=== PATIENT | female | born 1980 | race Caucasian/White ===

== ENCOUNTER → 2018-04-06 | Outpatient (CLI) | payer MEDICARE ==
[~2018-04-06] MED LIST: ACET-1718 PO; ALB18R INH; ALP5; ALP5 PO; AMI25 PO; AMIT-104 PO; BACDS PO; BENZ100C4 PO; BETH25TA29 PO; BUDE0.5A6 IH; BUDE10.2 IH; BUDE10.25 IH; BUTA1CAP4 PO; BUTA1CAP6 PO; BUTA1TAB14 PO; CEFP200T PO; CETI-169 PO; CIP500 PO; CIT20 PO; CLAR250T35 PO; CLO5 PO; CLOB15CR22 TP; CODE118S5 PO; CYC10 PO; CYCL10TA29 PO; DAR100 PO; DESL1TBM PO; DESO1TAB33 PO; DIA2 PO; DIAZ-308 PO; DIPH-618 PO; DOXY-181 PO; DUL100/5PT INH; DULO60CA56 PO; EPIN0.3P3 IM; ETHI1TAB25 PO; FIO PO; FLU1 PO; HYDR-4309 PO; HYDR2TAB74 PO; HYO125 SL; IBUP800T37 PO; IOPAMIDOL 76% 75 ML INFUS BTL 75 ML ONE; KEFLEX; KET10 PO; LEV500 PO; LEVA15HF IH; LIB PO; LOR5/325 PO; LORA-629 PO; MET10 PO; MET50 PO; MET500 PO; METH4TAB57 PO; MONT10TA PO; MULT-820 PO; MULT1CAP59 PO; NAPR-1043 PO; NAPR220C12 PO; NOR5/325; NS 0.9% 25 ML BAG 50 ML ONE; OLOP30.53 NS; OMEP40CA45 PO; OMEP40CA48 PO; ONDA-2 PO; ONDA4TAB PO; ONDA8TAB94 PO; OXYC-865 PO; PER PO; PRED-1 PO; PRO25 PO; PROM-110 PO; RABE20TA33 PO; RANI-366 PO; SALT; SALT TABLETS PO; SUMA50TA34 PO; TOPI25CA13 PO; TOPI50TA99 PO; TRA50 PO; TRAM-420 PO; TURM1POW3 MC; ZOLM5 PO; [UNRECOGNIZED DRUG - CODE] PO; [UNRECOGNIZED DRUG - REMARK]
--- NOTE | 2018-04-06 16:00 | RADIOLOGY IMAGING REPORT ---
FACILITY: [facility] - [place] PATIENT NAME: Ria Pham : 1980 MR: [id number] V: [id number] EXAM DATE: ORDERING PHYSICIAN: FERNANDO BUSTAMANTE TECHNOLOGIST: Location: [facility] - [place] Patient: Ria Pham : 1980 Visit/Account:[id number] Date of Sevice: 04/06/2018 CTA CHEST WW/O CNTR (PULM ANG) HISTORY: Bruise on left leg noticed this morning, shortness of breath ADDITIONAL HISTORY: None. TECHNIQUE: CTA chest with intravenous contrast. Axial imaging acquired following administration of IV contrast timed for maximum opacification of the pulmonary arterial vasculature. Slab 3-D MIP grace nstructed images were also created for further evaluation and interpretation. Reconstruction of the s [facility] [place] data set includes multiplanar 2-D in the sagittal and coronal planes and 3-D reconstructed katie nal slab MIP series. 3-D images were created by the technologist. Dose Lowering Technique One of the following dose optimization techniques was utilized in the performance of this exam: Autom ated exposure control; adjustment of the mA and/or kV according to the patient's size; or use of an i terative reconstruction technique. Specific details can be referenced in the facility's radiology C T exam operational policy. CONTRAST: 75 mL Isovue-370 COMPARISON: None. FINDINGS: Lungs/pleura: Negative. Heart/vessels: Negative. There are no filling defects seen in the pulmonary arteries worrisome for a pulmonary embolus. Mediastinum/lymph nodes: Negative. Visualized upper abdomen: Incompletely imaged is what appears to be surgical clips in the gallbladde r fossa. A small hiatal hernia Bones/soft tissues: Mild spondylotic changes in the thoracic spine. Moderate spondylotic changes in the visualized lower cervical spine Additional findings: None IMPRESSION: No evidence of pulmonary emboli or pulmonary consolidation Results were called to FERNANDO BUSTAMANTE at 04/06/2018 3:56 PM. Report Dictated By: Maricruz Magdaleno MD at 04/06/2018 3:49 PM Report E-Signed By: Maricruz Magdaleno MD at 04/06/2018 3:56 PM WSN:[email or web address]
--- NOTE | 2018-04-06 16:28 | RADIOLOGY IMAGING REPORT ---
[place] [facility] [place] Ria Pham : 1980 MR: [id number] V: [id number] EXAM DATE: ORDERING PHYSICIAN: FERNANDO BUSTAMANTE TECHNOLOGIST: Location: [facility] - [place] Patient: Ria Pham : 1980 Visit/Account:[id number] Date of Sevice: 04/06/2018 Exam type: VENOUS DOPP LOW LEFT EXTREMITY History: Bruise on left leg Comparison: None. Findings: The left lower extremity veins were imaged including the left common femoral vein, greater saphenous vein, superficial femoral vein, popliteal vein, posterior tibial vein, anterior tibial vein revealing no evidence of trauma thrombi the veins were compressible and demonstrated augmentation IMPRESSION: 1. No sonographic evidence of DVT involving the left lower extremity veins Results were called to FERNANDO BUSTAMANTE at 04/06/2018 4:25 PM. Report Dictated By: Maricruz Magdaleno MD at 04/06/2018 4:21 PM Report E-Signed By: Maricruz Magdaleno MD at 04/06/2018 4:25 PM WSN:[email or web address]
== END ==
LOC: CT 14:29
PROVIDERS: ATTEND Nurse Practitioner Family
DX: M47.894 Other spondylosis, thoracic region (principal); K44.9 Diaphragmatic hernia without obstruction or gangrene; Z90.49 Acquired absence of other specified parts of digestive tract
CPT/HCPCS: 71275; 93971; Q9967

== ENCOUNTER 2018-04-08 17:29 | Emergency (ER) | payer MEDICARE ==
[~2018-04-08 17:29] MED LIST changes: -IOPAMIDOL 76% 75 ML INFUS BTL 75 ML ONE; -NS 0.9% 25 ML BAG 50 ML ONE
[2018-04-08 17:35] VITALS: BP 132/106
[2018-04-08] MEDS ORDERED: ASPI-1471 PO (17:39)
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
[2018-04-08] MEDS ORDERED: NS(*) 0.9% 1000 ML BAG 1,000 ML IV ONE (18:10)
--- NOTE | 2018-04-08 18:47 | EKG ---
FACILITY: [facility] PATIENT NAME: SHANNON MAHARAJ : [id number] MR: [id number] V: [id number] EXAM DATE: ORDERING PHYSICIAN: GLENN PEÑA TECHNOLOGIST: BEN DeL eon Reason : Blood Pressure : / mmHG Vent. Rate : 096 BPM Atrial Rate : 096 BPM P-R Int : 152 ms QRS Dur : 092 ms QT Int : 330 ms P-R-T Axes : 037 -16 031 degrees QTc Int : 416 ms Sinus rhythm When compared with ECG of 18-JUN-2016 09:57, No significant change was found Confirmed by MILY TATUM ([id number]) on 04/08/2018 7:55:28 PM Referred By: Confirmed By:MILY TATUM
[2018-04-08 18:52] LABS: PLATELET COUNT, AUTOMATED 190 K/uL (150-450)
[2018-04-08] MEDS ORDERED: ALBUTEROL/IPRATROPIUM 3 ML NEB NEB ONE (19:05)
[2018-04-08 19:21] LABS: INR 1.05
--- NOTE | 2018-04-08 20:16 | RADIOLOGY IMAGING REPORT ---
FACILITY: [facility] PATIENT NAME: Ria Pham : 1980 MR: [id number] V: [id number] EXAM DATE: ORDERING PHYSICIAN: GLENN PEÑA TECHNOLOGIST: Location: [facility] Patient: Ria Pham : 1980 Visit/Account:[id number] Date of Sevice: 04/08/2018 CHEST: Indication: Dyspnea. Technique: Frontal and lateral views were obtained. Comparison: 06/18/2016 Skeletal and soft tissue structures: Intact and unremarkable. Heart and mediastinum: Within normal limits. Lung hart: Well-expanded and clear. Pleural spaces: Unremarkable. Impression: No acute process or significant change. Report Dictated By: Junaid Sampson MD at 04/08/2018 8:10 PM Report E-Signed By: Junaid Sampson MD at 04/08/2018 8:11 PM WSN:[id number]
--- NOTE | 2018-04-08 20:17 | RADIOLOGY IMAGING REPORT ---
FACILITY: [facility] [place] PATIENT NAME: Ria Pham : 1980 MR: [id number] V: [id number] EXAM DATE: ORDERING PHYSICIAN: GLENN PEÑA TECHNOLOGIST: Location: [facility] Patient: Ria Pham : 1980 Visit/Account:[id number] Date of Sevice: 04/08/2018 CERVICAL SPINE: Indication: Neck pain. Technique: Multiple frontal and lateral images were obtained. Comparison: None. Findings: There is no evidence of fracture, subluxation, or compression deformity. There is moderate space narrowing and marginal formation at C6-C7. The other disc spaces appear normal. There is unifor m mineralization of the skeletal structures. No paraspinal soft tissue abnormalities are identified. IMPRESSION: Moderate degenerative disc disease and osteoarthritis at C6-C7. No acute deformity. Report Dictated By: Junaid Sampson MD at 04/08/2018 8:11 PM Report E-Signed By: Junaid Sampson MD at 04/08/2018 8:13 PM WSN:[id number]
--- NOTE | 2018-04-08 20:39 | RADIOLOGY IMAGING REPORT ---
[place] [facility] [place]: Ria Pham : 1980 MR: [id number] V: [id number] EXAM DATE: ORDERING PHYSICIAN: GLENN PEÑA TECHNOLOGIST: Location: [facility] Patient: Ria Pham : 1980 Visit/Account:[id number] Date of Sevice: 04/08/2018 Venous Doppler ultrasound left lower extremity Indication: Left leg swelling.. Comparison: None Available Findings: Duplex Doppler and color flow imaging was performed. The common femoral, femoral, and popl iteal veins are all patent and compressible with normal Doppler wave forms. There are normal respons es to augmentation. The posterior tibial and peroneal veins are patent in the calf. The proximal greater saphenous vein is also normal. Subcutaneous tissues are unremarkable. IMPRESSION: 1. No evidence of deep venous thrombosis of the left lower extremity. Report Dictated By: Piero Keith at 04/08/2018 8:33 PM Report E-Signed By: Piero Keith at 04/08/2018 8:35 PM WSN:[id number]
[2018-04-08] MEDS ORDERED: AZIT-18 PO (20:47)
[2018-04-08] MEDS ORDERED: PRED20TA6 PO (20:47)
== END 2018-04-08 20:56 | disposition home or self-care (01) ==
LOC: ER 18:03
DX: M50.323 Other cervical disc degeneration at C6-C7 level (principal); M47.812 Spondylosis without myelopathy or radiculopathy, cervical region; J45.41 Moderate persistent asthma with (acute) exacerbation
CPT/HCPCS: 71046; 72040; 85025; 85610; 85730; 93005; 93971; 94640; 96360; 99285; J7030; J7620; 82040; 82247; 82310; 82374; 82435; 82565; 82947; 84075; 84132; 84155; 84295; 84450; 84460; 84520

== ENCOUNTER → 2018-04-12 | Outpatient (CLI) | payer MEDICARE ==
[~2018-04-12] MED LIST changes: +ASPI-1471 PO; +AZIT-18 PO; +PRED20TA6 PO
== END ==
LOC: LAB 10:08
PROVIDERS: ATTEND Nurse Practitioner Family
DX: R58 Hemorrhage, not elsewhere classified (principal); R60.0 Localized edema; L53.9 Erythematous condition, unspecified; Z87.42 Personal history of other diseases of the female genital tract; Z83.2 Family history of diseases of the blood and blood-forming organs and certain disorders involving the immune mechanism
CPT/HCPCS: 36415; 85240

== ENCOUNTER 2018-04-14 02:31 | Day surgery (SDC) | payer MEDICARE, OTHER ==
[~2018-04-14] VITALS: Ht 170.2 cm; Wt 147.0 kg
[2018-04-14] MEDS ORDERED: LIDOCAINE/SOD BICARB 8.4% SYR ID ONE (07:00)
[2018-04-14] MEDS ORDERED: NORMOSOL R SOLN(*) 1000 ML BAG 1,000 ML IV PRN (07:00)
[2018-04-14] MEDS ORDERED: PROPOFOL EMUL(*) 10MG/ML 20 ML 20 ML ONE (07:06)
[2018-04-14 07:33] VITALS: BP 128/98
[2018-04-14 08:59] VITALS: BP 141/81
--- NOTE | 2018-04-14 09:08 | Short(Outpt) Discharge Summary ---
Discharge Summary Reason for Hosp/Final Diag: (1) Nausea and vomiting in adult Status: Chronic Hospital Course & Plan: EGD with biopsies completed without problems. (2) Epigastric abdominal pain Status: Chronic Departure Discharge to: Home, Self Care Discharge Instructions Home Meds Active Scripts Prednisone (PREDNISONE) 20 Mg Tablet, 20 MG PO BID for 5 Days, #10 TAB Prov:GLENN PEÑA [facility] 04/08/18 Azithromycin 250 Mg Tab (AZITHROMYCIN 250 MG TAB) 250 Mg Tablet, 1 TAB PO QDAY for 5 Days, #6 TAB Take 2 tabs today and then 1 tab a day until gone. Prov:GLENN PEÑA [facility] 04/08/18 Reported Medications Aspirin (ASPIR 81) 81 Mg Tablet.dr, 81 MG PO QDAY, TAB 04/08/18 Montelukast Sodium (SINGULAIR) 10 Mg Tablet, 1 TAB PO QDAY, TAB 03/09/18 Epinephrine (EPINEPHRINE) 0.3 Mg/0.3 Ml Pen.injctr, 0.3 MG IM PRN 03/09/18 Levalbuterol Tartrate (XOPENEX HFA) 15 Gm Hfa.aer.ad, 2 PUFF IH Q4-6H Y for SHORTNESS OF BREATH, #2 03/09/18 Mometasone/Formoterol (DULERA 100 MCG/5 MCG INHALER) 13 Gm Inh, 2 PUFF INH QDAY , #2 PUFF 03/09/18 Bethanechol Chloride (BETHANECHOL CHLORIDE) 25 Mg Tablet, 25 MG PO ACHS 03/09/18 Ranitidine Hcl (ZANTAC) 150 Mg Tablet, 300 MG PO QHS, TAB 03/09/18 Budesonide (BUDESONIDE) 0.5 Mg/2 Ml Ampul.neb, 0.5 MG IH BID, ML 03/09/18 Olopatadine Hcl (PATANASE) 30.5 Gm [place].pump, 2 SPRAYS NS BID, #2 SPRAYS 03/09/18 Cetirizine Hcl (CETIRIZINE HCL) 10 Mg Tablet, 10 MG PO QHS, TAB 03/09/18 Loratadine (LORATADINE) 10 Mg Tablet, 10 MG PO QDAY 03/09/18 Ondansetron Hcl (ONDANSETRON HCL) 4 Mg Tablet, 4 MG PO 2XW, TAB 03/09/18 Diphenhydramine Hcl (DIPHENHYDRAMINE HCL) 25 Mg Tablet, 25 MG PO PRN, TAB 03/09/18 Naproxen Sodium (ALEVE) 220 Mg Capsule, 220 MG PO 3XW, CAPSULE 03/09/18 Butalb/Acetaminophen/Caff 50-325-40 Mg (FIORICET 50-325-40) 1 Each Tablet, 1-2 TAB PO PRN, #30 TAB 03/09/18 Cyclobenzaprine Hcl (CYCLOBENZAPRINE HCL) 10 Mg Tablet, 10 MG PO PRN, #9 TAB 03/09/18 Clobetasol Propionate/Emoll (CLOBETASOL EMOLLIENT 0.05% CRM) 15 Gm Cream..g., 0 TP PRN 03/09/18 Turmeric (CURCUMIN) 1 Gm Powder, 1 GM MC PRN 03/09/18 Multivitamin (MULTIVITAMINS) 1 Each Capsule, 1 EACH PO, CAPSULE 03/09/18 Omeprazole (OMEPRAZOLE) 40 Mg Capsule.dr, 40 MG PO BID, CAP 03/09/18 Discontinued Reported Medications Tramadol Hcl (TRAMADOL HCL) 50 Mg Tablet, 50-100 MG PO 1-3/month, TAB 03/09/18 Budesonide/Formoterol Fumarate (SYMBICORT 80-4.5 MCG INHALER) 10.2 Gm Hfa.aer.ad , 10.2 GM IH BID, #2 PUFF 03/09/18 Diet: Regular Activity: As Tolerated Special Instructions: Your EGD was completed without problems and I performed the biopsies that we discussed but I didn't find anything else abnormal to biopsy. There were no ulcers or other abnormalities. My office will call you in the next week to let you know what the biopsy results are and we'll fax all results to your GI specialist in [place]. PEMA JACKSON MD Apr 14, 2018 09:08
[2018-04-14 09:13] VITALS: BP 122/88
[2018-04-14 09:26] VITALS: BP 130/78
[2018-04-14 09:37] VITALS: BP 126/91
[2018-04-14 09:39] VITALS: BP 129/83
== END 2018-04-14 09:50 | disposition home or self-care (01) ==
LOC: OR 02:31
PROVIDERS: ATTEND Surgery
DX: R10.9 Unspecified abdominal pain (principal); R11.2 Nausea with vomiting, unspecified
CPT/HCPCS: 43239; 81025; 87077; 88305; J2704

== ENCOUNTER 2018-04-17 21:29 | Emergency (ER) | payer MEDICARE ==
--- NOTE | 2018-04-17 21:32 | ER Report ---
History and Physical Time Seen By MD: 21:31 HPI/ROS CHIEF COMPLAINT: Near syncope, dizziness HISTORY OF PRESENT ILLNESS: Patient is a 37-year-old female here with complaints of near syncopal episodes, dizziness, weakness. Patient reports that she has had multiple similar episodes however this evening her fall was witnessed by her friend who brought her to the emergency department. Patient also reports that she is being worked up for bleeding and clotting disorder, abnormal bruising, possible factor IV Leiden syndrome. Patient complains of nausea, dehydration. Denies fevers, chills, chest pain, shortness breath, rash. REVIEW OF SYSTEMS: Constitutional: No fever, no chills. Eyes: No discharge. ENT: No sore throat. Cardiovascular: No chest pain, no palpitations. Respiratory: No cough, no shortness of breath. Gastrointestinal: No abdominal pain, + nausea and intermittent vomiting. Genitourinary: No hematuria. Musculoskeletal: No back pain. Skin: No rashes. Neurological: No headache. Allergies: Coded Allergies: morphine (Verified Allergy, Intermediate, HIVES, 04/17/18) Penicillins (Verified Allergy, Mild, RASH, 04/17/18) latex (Verified Allergy, Mild, hives/rash, 04/17/18) NSAIDS (Non-Steroidal Anti-Inflamma (Verified Allergy, Unknown, ITCHING, ) banana (Unverified Allergy, Unknown, 04/17/18) milk (Unverified Allergy, Unknown, 04/17/18) pineapple (Unverified Allergy, Unknown, 04/17/18) tomato (Unverified Allergy, Unknown, 04/17/18) aspirin (Verified Adverse Reaction, Unknown, 04/17/18) Uncoded Allergies: Nuts (Allergy, Unknown, 02/23/18) Dairy (Adverse Reaction, Unknown, 02/23/18) Home Meds Reported Medications Aspirin (ASPIR 81) 81 Mg Tablet.dr, 81 MG PO QDAY, TAB 04/08/18 Montelukast Sodium (SINGULAIR) 10 Mg Tablet, 1 TAB PO QDAY, TAB 03/09/18 Epinephrine (EPINEPHRINE) 0.3 Mg/0.3 Ml Pen.injctr, 0.3 MG IM PRN 03/09/18 Levalbuterol Tartrate (XOPENEX HFA) 15 Gm Hfa.aer.ad, 2 PUFF IH Q4-6H Y for SHORTNESS OF BREATH, #2 03/09/18 Mometasone/Formoterol (DULERA 100 MCG/5 MCG INHALER) 13 Gm Inh, 2 PUFF INH QDAY , #2 PUFF 03/09/18 Bethanechol Chloride (BETHANECHOL CHLORIDE) 25 Mg Tablet, 25 MG PO ACHS 03/09/18 Ranitidine Hcl (ZANTAC) 150 Mg Tablet, 300 MG PO QHS, TAB 03/09/18 Budesonide (BUDESONIDE) 0.5 Mg/2 Ml Ampul.neb, 0.5 MG IH BID, ML 03/09/18 Olopatadine Hcl (PATANASE) 30.5 Gm [place].pump, 2 SPRAYS NS BID, #2 SPRAYS 03/09/18 Cetirizine Hcl (CETIRIZINE HCL) 10 Mg Tablet, 10 MG PO QHS, TAB 03/09/18 Loratadine (LORATADINE) 10 Mg Tablet, 10 MG PO QDAY 03/09/18 Ondansetron Hcl (ONDANSETRON HCL) 4 Mg Tablet, 4 MG PO 2XW, TAB 03/09/18 Diphenhydramine Hcl (DIPHENHYDRAMINE HCL) 25 Mg Tablet, 25 MG PO PRN, TAB 03/09/18 Naproxen Sodium (ALEVE) 220 Mg Capsule, 220 MG PO 3XW, CAPSULE 03/09/18 Butalb/Acetaminophen/Caff 50-325-40 Mg (FIORICET 50-325-40) 1 Each Tablet, 1-2 TAB PO PRN, #30 TAB 03/09/18 Cyclobenzaprine Hcl (CYCLOBENZAPRINE HCL) 10 Mg Tablet, 10 MG PO PRN, #9 TAB 03/09/18 Clobetasol Propionate/Emoll (CLOBETASOL EMOLLIENT 0.05% CRM) 15 Gm Cream..g., 0 TP PRN 03/09/18 Turmeric (CURCUMIN) 1 Gm Powder, 1 GM MC PRN 03/09/18 Multivitamin (MULTIVITAMINS) 1 Each Capsule, 1 EACH PO, CAPSULE 03/09/18 Omeprazole (OMEPRAZOLE) 40 Mg Capsule.dr, 40 MG PO BID, CAP 03/09/18 Discontinued Scripts Prednisone (PREDNISONE) 20 Mg Tablet, 20 MG PO BID for 5 Days, #10 TAB Prov:GLENN PEÑA [employer] 04/08/18 Azithromycin 250 Mg Tab (AZITHROMYCIN 250 MG TAB) 250 Mg Tablet, 1 TAB PO QDAY for 5 Days, #6 TAB Take 2 tabs today and then 1 tab a day until gone. Prov:GLENN PEÑA [employer] 04/08/18 Hx Smoking: No Smoking Status: Never Smoker Exposure to Second Hand Smoke?: No Hx Substance Use Disorder: No Hx Alcohol Use: No Constitutional Physical Exam General Appearance: The patient is alert, has no immediate need for airway protection and no signs of toxicity. NAD Eyes: Pupils equal and round no pallor or injection. ENT, Mouth: Mucous membranes are moist. Respiratory: There are no retractions, lungs are clear to auscultation. Cardiovascular: Regular rate and rhythm. Gastrointestinal: Abdomen is soft and non tender, no masses, bowel sounds normal. Neurological: No focal deficits Skin: Warm and dry, no rashes. Musculoskeletal: Neck is supple non tender. DIFFERENTIAL DIAGNOSIS: After history and physical exam differential diagnosis was considered for dehydration, electrolyte imbalance, arrhythmia, head injury. Medical Decision Making Data Points Laboratory Hematology Test 04/17/18 21:37 04/17/18 21:58 Urine Color Yellow Urine Clarity Clear Urine pH 6.0 pH (4.8-9.5) Urine Specific [place] 1.016 Urine Protein Negative mg/dL (NEGATIVE) Urine Glucose (UA) Negative mg/dL (NEGATIVE) Urine Ketones Negative mg/dL (NEGATIVE) Urine Blood Small (NEGATIVE) Urine Nitrite Negative (NEGATIVE) Urine Bilirubin Negative (NEGATIVE) Urine Urobilinogen Negative mg/dL (0.2-1.9) Urine Leukocyte Esterase Negative (NEGATIVE) Urine RBC 1 /HPF (0-2/HPF) Urine WBC None /HPF (0-5/HPF) Urine Squamous Epithelial Cells Many /LPF (</=FEW) Urine Bacteria Negative /HPF (NONE-FEW) Urine Mucus None /HPF (NONE-FEW) Red Blood Count 4.88 M/uL (4.17-5.56) Mean Corpuscular Volume 87.1 fL (80.0-96.0) Mean Corpuscular Hemoglobin 29.3 pg (26.0-33.0) Mean Corpuscular Hemoglobin Concent 33.6 g/dL (32.0-36.0) Red Cell Distribution Width 14.2 % (11.5-14.5) Mean Platelet Volume 9.0 fL (7.2-11.1) Neutrophils (%) (Auto) 73.5 % (39.4-72.5) Lymphocytes (%) (Auto) 19.1 % (17.6-49.6) Monocytes (%) (Auto) 5.5 % (4.1-12.4) Eosinophils (%) (Auto) 0.9 % (0.4-6.7) Basophils (%) (Auto) 1.0 % (0.3-1.4) Nucleated RBC Relative Count (auto) 0.1 /100WBC Neutrophils # (Auto) 8.5 K/uL (2.0-7.4) Lymphocytes # (Auto) 2.2 K/uL (1.3-3.6) Monocytes # (Auto) 0.6 K/uL (0.3-1.0) Eosinophils # (Auto) 0.1 K/uL (0.0-0.5) Basophils # (Auto) 0.1 K/uL (0.0-0.1) Nucleated RBC Absolute Count (auto) 0.01 K/uL Prothrombin Time 13.9 seconds (12.0-14.4) Prothromb Time International Ratio 1.07 Activated Partial Thromboplast Time 29 seconds (23-35) Sodium Level 139 mmol/L (137-145) Potassium Level 3.5 mmol/L (3.5-5.0) Chloride Level 103 mmol/L (98-107) Carbon Dioxide Level 27 mmol/L (22-31) Blood Urea Nitrogen 11 mg/dl (7-18) Creatinine 0.70 mg/dl (0.52-1.04) Glomerular Filtration Rate Calc > 60.0 Random Glucose 119 mg/dl (75-110) Calcium Level 9.1 mg/dl (8.4-10.2) Total Bilirubin 0.4 mg/dl (0.2-1.3) Aspartate Amino Transf (AST/SGOT) 19 U/L (0-35) Alanine Aminotransferase (ALT/SGPT) 34 U/L (0-56) Alkaline Phosphatase 62 U/L (0-126) Total Protein 6.8 g/dl (6.3-8.2) Albumin 3.6 g/dl (3.5-5.0) Lipase 101 U/L (23-300) Human Chorionic Gonadotropin, Qual Negative (NEGATIVE) Chemistry Test 04/17/18 21:37 04/17/18 21:58 Urine Color Yellow Urine Clarity Clear Urine pH 6.0 pH (4.8-9.5) Urine Specific [place] 1.016 Urine Protein Negative mg/dL (NEGATIVE) Urine Glucose (UA) Negative mg/dL (NEGATIVE) Urine Ketones Negative mg/dL (NEGATIVE) Urine Blood Small (NEGATIVE) Urine Nitrite Negative (NEGATIVE) Urine Bilirubin Negative (NEGATIVE) Urine Urobilinogen Negative mg/dL (0.2-1.9) Urine Leukocyte Esterase Negative (NEGATIVE) Urine RBC 1 /HPF (0-2/HPF) Urine WBC None /HPF (0-5/HPF) Urine Squamous Epithelial Cells Many /LPF (</=FEW) Urine Bacteria Negative /HPF (NONE-FEW) Urine Mucus None /HPF (NONE-FEW) White Blood Count 11.6 k/uL (4.5-11.0) Red Blood Count 4.88 M/uL (4.17-5.56) Hemoglobin 14.3 g/dL (12.0-16.0) Hematocrit 42.5 % (34.0-47.0) Mean Corpuscular Volume 87.1 fL (80.0-96.0) Mean Corpuscular Hemoglobin 29.3 pg (26.0-33.0) Mean Corpuscular Hemoglobin Concent 33.6 g/dL (32.0-36.0) Red Cell Distribution Width 14.2 % (11.5-14.5) Platelet Count 188 K/uL (150-450) Mean Platelet Volume 9.0 fL (7.2-11.1) Neutrophils (%) (Auto) 73.5 % (39.4-72.5) Lymphocytes (%) (Auto) 19.1 % (17.6-49.6) Monocytes (%) (Auto) 5.5 % (4.1-12.4) Eosinophils (%) (Auto) 0.9 % (0.4-6.7) Basophils (%) (Auto) 1.0 % (0.3-1.4) Nucleated RBC Relative Count (auto) 0.1 /100WBC Neutrophils # (Auto) 8.5 K/uL (2.0-7.4) Lymphocytes # (Auto) 2.2 K/uL (1.3-3.6) Monocytes # (Auto) 0.6 K/uL (0.3-1.0) Eosinophils # (Auto) 0.1 K/uL (0.0-0.5) Basophils # (Auto) 0.1 K/uL (0.0-0.1) Nucleated RBC Absolute Count (auto) 0.01 K/uL Prothrombin Time 13.9 seconds (12.0-14.4) Prothromb Time International Ratio 1.07 Activated Partial Thromboplast Time 29 seconds (23-35) Glomerular Filtration Rate Calc > 60.0 Calcium Level 9.1 mg/dl (8.4-10.2) Total Bilirubin 0.4 mg/dl (0.2-1.3) Aspartate Amino Transf (AST/SGOT) 19 U/L (0-35) Alanine Aminotransferase (ALT/SGPT) 34 U/L (0-56) Alkaline Phosphatase 62 U/L (0-126) Total Protein 6.8 g/dl (6.3-8.2) Albumin 3.6 g/dl (3.5-5.0) Lipase 101 U/L (23-300) Human Chorionic Gonadotropin, Qual Negative (NEGATIVE) Coagulation Test 04/17/18 21:58 Prothrombin Time 13.9 seconds Prothromb Time International Ratio 1.07 Activated Partial Thromboplast Time 29 seconds Urinalysis Test 04/17/18 21:37 Urine Color Yellow Urine Clarity Clear Urine pH 6.0 pH (4.8-9.5) Urine Specific [place] 1.016 Urine Protein Negative mg/dL (NEGATIVE) Urine Glucose (UA) Negative mg/dL (NEGATIVE) Urine Ketones Negative mg/dL (NEGATIVE) Urine Blood Small (NEGATIVE) Urine Nitrite Negative (NEGATIVE) Urine Bilirubin Negative (NEGATIVE) Urine Urobilinogen Negative mg/dL (0.2-1.9) Urine Leukocyte Esterase Negative (NEGATIVE) Urine RBC 1 /HPF (0-2/HPF) Urine WBC None /HPF (0-5/HPF) Urine Squamous Epithelial Cells Many /LPF (</=FEW) Urine Bacteria Negative /HPF (NONE-FEW) Urine Mucus None /HPF (NONE-FEW) EKG/Imaging EKG Interpretation Test Reason : DIZZY Blood Pressure : / mmHG Vent. Rate : 082 BPM Atrial Rate : 082 BPM P-R Int : 160 ms QRS Dur : 092 ms QT Int : 350 ms P-R-T Axes : 023 -20 012 degrees QTc Int : 408 ms Normal sinus rhythm No ST-T abnormalities Relatively unchange from previous Confirmed by HOMER LOPEZ ([id number]) on 04/18/2018 6:25:03 AM Monitor Interpretation: Normal Sinus Rhythm Imaging EXAMINATION: CT head without IV contrast HISTORY: Fall. Hit head. Dizzy. Nausea and vomiting. TECHNIQUE: Axial CT images of the head were obtained from the vertex to the skull base without IV contrast, with coronal and sagittal 2D reconstructed images. One of the following dose optimization techniques was utilized in the performance of this exam: Automated exposure control; adjustment of the mA and/ or kV according to the patient's size; or use of an iterative reconstruction technique. Specific details can be referenced in the facility's radiology CT exam operational policy. COMPARISON: 04/05/2015. FINDINGS: The intracranial contents are unremarkable. No CT evidence of intracranial hemorrhage, mass lesion, or acute infarct. No midline shift or extra-axial fluid collections. Maza-white differentiation is maintained. The calvarium is intact. The visualized paranasal sinuses and mastoid air cells are unopacified. IMPRESSION: Unremarkable noncontrast head CT. ED Course/Re-evaluation ED Course Patient is a 37-year-old female here with complaints of near syncopal episodes. She was noted to fall this evening witnessed by her friend who brought her in for evaluation. Labs were relatively unremarkable, was negative, urinalysis showed no signs of infection, no signs of acute anemia were present. EKG showed no arrhythmias or ischemic changes. CT imaging of the head was performed due to patient's symptoms of headache and dizziness which showed no intracranial pathology. Patient was given fluid boluses 2, Zofran and had significant relief of symptoms. Patient was advised to follow-up with family doctor in the next several days. Patient was stable, ambulating without issue at time of discharge. Decision to Disposition Date: Apr 17, 2018 Decision to Disposition Time: 23:15 Depart Departure Latest Vital Signs Impression: Primary Impression: Near syncope Additional Impression: Dizziness Condition: Improved Disposition: HOME OR SELF-CARE Referrals: JEFE,DAVIN [employer]GER (PCP) Patient Instructions: Dizziness (ED), Near Syncope (ED) Problem Qualifiers ADINA EDE DO Apr 17, 2018 21:32
[2018-04-17] MEDS ORDERED: NS(*) 0.9% 1000 ML BAG 1,000 ML IV ONE ×2 (21:43→22:35)
[2018-04-17] MEDS ORDERED: ONDANSETRON 4 MG/2 ML VIAL IVP ONE (21:45)
[2018-04-17 22:04] LABS: PLATELET COUNT, AUTOMATED 188 K/uL (150-450)
[2018-04-17 22:14] LABS: INR 1.07
--- NOTE | 2018-04-17 22:37 | RADIOLOGY IMAGING REPORT ---
FACILITY[place] [facility] [place]IENT NAME: Ria Pham : 1980 MR: [id number] V: [id number] EXAM DATE: ORDERING PHYSICIAN: ADINA DEE TECHNOLOGIST: Location: [facility] - [place] Patient: Ria Pham : 1980 Visit/Account:[id number] Date of Sevice: 04/17/2018 EXAMINATION: CT head without IV contrast HISTORY: Fall. Hit head. Dizzy. Nausea and vomiting. TECHNIQUE: Axial CT images of the head were obtained from the vertex to the skull base without IV c ontrast, with coronal and sagittal 2D reconstructed images. One of the following dose optimization techniques was utilized in the performance of this exam: Autom ated exposure control; adjustment of the mA and/or kV according to the patient's size; or use of an i terative reconstruction technique. Specific details can be referenced in the facility's radiology C T exam operational policy. COMPARISON: 04/05/2015. FINDINGS: The intracranial contents are unremarkable. No CT evidence of intracranial hemorrhage, mass lesion, or acute infarct. No midline shift or extra-axial fluid collections. Maza-white differentiation is maintained. The calvarium is intact. The visualized paranasal sinuses and mastoid air cells are unopacified. IMPRESSION: Unremarkable noncontrast head CT. Report Dictated By: Silvino Muller MD at 04/17/2018 10:31 PM Report E-Signed By: Silvino Muller MD at 04/17/2018 10:34 PM WSN:[id number]
--- NOTE | 2018-04-17 23:02 | EKG ---
FACILITY: [facility] - [place] PATIENT NAME: SHANNON MAHARAJ : [id number] MR: [id number] V: [id number] EXAM DATE: ORDERING PHYSICIAN: ADINA DEE TECHNOLOGIST: RALPH Test Reason : DIZZY Blood Pressure : / mmHG Vent. Rate : 082 BPM Atrial Rate : 082 BPM P-R Int : 160 ms QRS Dur : 092 ms QT Int : 350 ms P-R-T Axes : 023 -20 012 degrees QTc Int : 408 ms Normal sinus rhythm No ST-T abnormalities Relatively unchange from previous Confirmed by HOMER LOPEZ ([id number]) on 04/18/2018 6:25:03 AM Referred By: Confirmed By:HOMER LOPEZ
[2018-04-17 23:23] VITALS: BP 113/84
== END 2018-04-17 23:25 | disposition home or self-care (01) ==
LOC: ER 21:50
DX: R55 Syncope and collapse (principal); R42 Dizziness and giddiness
CPT/HCPCS: 70450; 81001; 83690; 84703; 85025; 85610; 85730; 93005; 96361; 96374; 99284; J2405; J7030; 82040; 82247; 82310; 82374; 82435; 82565; 82947; 84075; 84132; 84155; 84295; 84450; 84460; 84520

== ENCOUNTER 2018-05-16 19:30 | Emergency (ER) | payer MEDICARE ==
[2018-05-16] MEDS ORDERED: CEF300 PO (19:45)
[2018-05-16] MEDS ORDERED: BENZ100C4 PO (19:45)
--- NOTE | 2018-05-16 19:53 | ER Report ---
History and Physical Time Seen By MD: 19:49 Hx. of Stated Complaint: PT SENT HER FROM URGENT CARE FOR A RESP INFECTION. THEY WERE UNABLE TO GET AN IV STARTED. HPI/ROS CHIEF COMPLAINT: Nausea and vomiting HISTORY OF PRESENT ILLNESS: This is a 37-year-old female presents to the emergency department from urgent care for an upper respiratory infection, nausea and vomiting. Patient states she was seen at both urgent cares today she was diagnosed with an upper respiratory infection started on Omnicef. Patient also states that they did "try to get an IV to rehydrate" unfortunately they were unsuccessful. Subsequently the patient was sent to the emergency department for normal saline infusion. 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 Patient states that she' s been having these coughing episodes which has induced the vomiting and is "unable to keep anything down", however she has been able to keep her antibiotic down as well as the benzonatate and prednisone. Patient states she's had intermittent fevers, no chills. No chest pain or shortness of breath. REVIEW OF SYSTEMS: Constitutional: As above. Eyes: No discharge. ENT: No sore throat. Cardiovascular: No chest pain, no palpitations. Respiratory: As above. Gastrointestinal: As above. Genitourinary: No hematuria. Musculoskeletal: No back pain. Skin: No rashes. Neurological: No headache. Allergies: Coded Allergies: morphine (Verified Allergy, Intermediate, HIVES, 05/16/18) Penicillins (Verified Allergy, Mild, RASH, 05/16/18) latex (Verified Allergy, Mild, hives/rash, 05/16/18) NSAIDS (Non-Steroidal Anti-Inflamma (Verified Allergy, Unknown, ITCHING, ) banana (Unverified Allergy, Unknown, 05/16/18) milk (Unverified Allergy, Unknown, 05/16/18) pineapple (Unverified Allergy, Unknown, 05/16/18) tomato (Unverified Allergy, Unknown, 05/16/18) aspirin (Verified Adverse Reaction, Unknown, 05/16/18) Uncoded Allergies: Nuts (Allergy, Unknown, 02/23/18) Dairy (Adverse Reaction, Unknown, 02/23/18) Home Meds Active Scripts Promethazine Hcl (PROMETHAZINE HCL) 25 Mg Tablet, 25 MG PO Q8H, #9 TAB 0 Refills Prov:JADON POOLE PERCHER-BC 05/16/18 Reported Medications Cefdinir 300 Mg Cap (OMNICEF 300 MG CAP (OR EQUIV)) 300 Mg Cap, 300 MG PO BID, CAP 05/16/18 Benzonatate 100 Mg Cap (TESSALON PERLE 100 MG CAP) 100 Mg Capsule, 100 MG PO TID , #15 CAP 05/16/18 Montelukast Sodium (SINGULAIR) 10 Mg Tablet, 1 TAB PO QDAY, TAB 03/09/18 Epinephrine (EPINEPHRINE) 0.3 Mg/0.3 Ml Pen.injctr, 0.3 MG IM PRN 03/09/18 Levalbuterol Tartrate (XOPENEX HFA) 15 Gm Hfa.aer.ad, 2 PUFF IH Q4-6H Y for SHORTNESS OF BREATH, #2 03/09/18 Mometasone/Formoterol (DULERA 100 MCG/5 MCG INHALER) 13 Gm Inh, 2 PUFF INH QDAY , #2 PUFF 03/09/18 Bethanechol Chloride (BETHANECHOL CHLORIDE) 25 Mg Tablet, 25 MG PO ACHS 03/09/18 Ranitidine Hcl (ZANTAC) 150 Mg Tablet, 300 MG PO QHS, TAB 03/09/18 Budesonide (BUDESONIDE) 0.5 Mg/2 Ml Ampul.neb, 0.5 MG IH BID, ML 03/09/18 Olopatadine Hcl (PATANASE) 30.5 Gm [place].pump, 2 SPRAYS NS BID, #2 SPRAYS 03/09/18 Cetirizine Hcl (CETIRIZINE HCL) 10 Mg Tablet, 10 MG PO QHS, TAB 03/09/18 Loratadine (LORATADINE) 10 Mg Tablet, 10 MG PO QDAY 03/09/18 Ondansetron Hcl (ONDANSETRON HCL) 4 Mg Tablet, 4 MG PO 2XW, TAB 03/09/18 Diphenhydramine Hcl (DIPHENHYDRAMINE HCL) 25 Mg Tablet, 25 MG PO PRN, TAB 03/09/18 Naproxen Sodium (ALEVE) 220 Mg Capsule, 220 MG PO 3XW, CAPSULE 03/09/18 Butalb/Acetaminophen/Caff 50-325-40 Mg (FIORICET 50-325-40) 1 Each Tablet, 1-2 TAB PO PRN, #30 TAB 03/09/18 Cyclobenzaprine Hcl (CYCLOBENZAPRINE HCL) 10 Mg Tablet, 10 MG PO PRN, #9 TAB 03/09/18 Clobetasol Propionate/Emoll (CLOBETASOL EMOLLIENT 0.05% CRM) 15 Gm Cream..g., 0 TP PRN 03/09/18 Turmeric (CURCUMIN) 1 Gm Powder, 1 GM MC PRN 03/09/18 Multivitamin (MULTIVITAMINS) 1 Each Capsule, 1 EACH PO, CAPSULE 03/09/18 Omeprazole (OMEPRAZOLE) 40 Mg Capsule.dr, 40 MG PO BID, CAP 03/09/18 Discontinued Reported Medications Aspirin (ASPIR 81) 81 Mg Tablet.dr, 81 MG PO QDAY, TAB 04/08/18 Past Medical/Surgical History The patient has a past medical and surgical history of Baumann disease, migraines , postural orthostatic tachycardia, asthma, abdominal pain, pyelonephritis, polycystic ovarian syndrome, Jenny-Danlos syndrome, fibromyalgia, chronic fatigue, prediabetic, depression, anxiety. Reviewed Nurses Notes: Yes Hx Smoking: No Smoking Status: Never Smoker Exposure to Second Hand Smoke?: No Hx Substance Use Disorder: No Hx Alcohol Use: No Constitutional Vital Sign - Last 24 Hours 05/16/18 05/16/18 19:40 22:36 Temp 100.2 Pulse 129 92 Resp 18 16 B/P (MAP) 116/90 Pulse Ox 91 O2 Delivery Room Air Intake and Output 05/16/18 05/16/18 05/17/18 15:00 23:00 07:00 Intake Total 1000 ml Balance 1000 ml Physical Exam General Appearance: The patient is alert, has no immediate need for airway protection and no signs of toxicity. Eyes: Pupils equal and round no pallor or injection. ENT, Mouth: Mucous membranes are moist. Respiratory: There are no retractions, lungs are clear to auscultation. Cardiovascular: Regular rate and rhythm. Gastrointestinal: Abdomen is soft and non tender, no masses, bowel sounds normal. Neurological: Alert and oriented 4. Moving all extremities. Following all commands. No focal neuro deficits. Skin: Warm and dry, no rashes. Musculoskeletal: Neck is supple non tender. Extremities are nontender, nonswollen and have full range of motion. DIFFERENTIAL DIAGNOSIS: After history and physical exam differential diagnosis was considered for upper respiratory infection, pneumonia, bronchitis and gastroenteritis. Medical Decision Making Data Points Result Diagram: 05/16/18202005/16/182020 Laboratory Hematology Test 05/16/18 20:21 Red Blood Count 4.98 M/uL (4.17-5.56) Mean Corpuscular Volume 86.0 fL (80.0-96.0) Mean Corpuscular Hemoglobin 29.7 pg (26.0-33.0) Mean Corpuscular Hemoglobin Concent 34.5 g/dL (32.0-36.0) Red Cell Distribution Width 14.5 % (11.5-14.5) Mean Platelet Volume 9.3 fL (7.2-11.1) Neutrophils (%) (Auto) 82.5 % (39.4-72.5) Lymphocytes (%) (Auto) 10.4 % (17.6-49.6) Monocytes (%) (Auto) 5.0 % (4.1-12.4) Eosinophils (%) (Auto) 1.3 % (0.4-6.7) Basophils (%) (Auto) 0.8 % (0.3-1.4) Nucleated RBC Relative Count (auto) 0.1 /100WBC Neutrophils # (Auto) 8.4 K/uL (2.0-7.4) Lymphocytes # (Auto) 1.1 K/uL (1.3-3.6) Monocytes # (Auto) 0.5 K/uL (0.3-1.0) Eosinophils # (Auto) 0.1 K/uL (0.0-0.5) Basophils # (Auto) 0.1 K/uL (0.0-0.1) Nucleated RBC Absolute Count (auto) 0.01 K/uL Sodium Level 136 mmol/L (137-145) Potassium Level 3.9 mmol/L (3.5-5.0) Chloride Level 99 mmol/L (98-107) Carbon Dioxide Level 26 mmol/L (22-31) Blood Urea Nitrogen 12 mg/dl (7-18) Creatinine 0.70 mg/dl (0.52-1.04) Glomerular Filtration Rate Calc > 60.0 Random Glucose 108 mg/dl (75-110) Calcium Level 8.6 mg/dl (8.4-10.2) Total Bilirubin 0.6 mg/dl (0.2-1.3) Aspartate Amino Transf (AST/SGOT) 23 U/L (0-35) Alanine Aminotransferase (ALT/SGPT) 35 U/L (0-56) Alkaline Phosphatase 57 U/L (0-126) Total Protein 7.2 g/dl (6.3-8.2) Albumin 4.0 g/dl (3.5-5.0) Chemistry Test 05/16/18 20:21 White Blood Count 10.2 k/uL (4.5-11.0) Red Blood Count 4.98 M/uL (4.17-5.56) Hemoglobin 14.8 g/dL (12.0-16.0) Hematocrit 42.8 % (34.0-47.0) Mean Corpuscular Volume 86.0 fL (80.0-96.0) Mean Corpuscular Hemoglobin 29.7 pg (26.0-33.0) Mean Corpuscular Hemoglobin Concent 34.5 g/dL (32.0-36.0) Red Cell Distribution Width 14.5 % (11.5-14.5) Platelet Count 181 K/uL (150-450) Mean Platelet Volume 9.3 fL (7.2-11.1) Neutrophils (%) (Auto) 82.5 % (39.4-72.5) Lymphocytes (%) (Auto) 10.4 % (17.6-49.6) Monocytes (%) (Auto) 5.0 % (4.1-12.4) Eosinophils (%) (Auto) 1.3 % (0.4-6.7) Basophils (%) (Auto) 0.8 % (0.3-1.4) Nucleated RBC Relative Count (auto) 0.1 /100WBC Neutrophils # (Auto) 8.4 K/uL (2.0-7.4) Lymphocytes # (Auto) 1.1 K/uL (1.3-3.6) Monocytes # (Auto) 0.5 K/uL (0.3-1.0) Eosinophils # (Auto) 0.1 K/uL (0.0-0.5) Basophils # (Auto) 0.1 K/uL (0.0-0.1) Nucleated RBC Absolute Count (auto) 0.01 K/uL Glomerular Filtration Rate Calc > 60.0 Calcium Level 8.6 mg/dl (8.4-10.2) Total Bilirubin 0.6 mg/dl (0.2-1.3) Aspartate Amino Transf (AST/SGOT) 23 U/L (0-35) Alanine Aminotransferase (ALT/SGPT) 35 U/L (0-56) Alkaline Phosphatase 57 U/L (0-126) Total Protein 7.2 g/dl (6.3-8.2) Albumin 4.0 g/dl (3.5-5.0) ED Course/Re-evaluation Clinical Indication for ER IV: Hydration, IV Access ED Course The patient was admitted to room. A history and physical were obtained. Differential diagnoses were considered. After multiple attempts an IV was finally started. A CBC, CMP were obtained. Lab studies unremarkable. There is concern after about 500 mL of normal saline at the IV infiltrated, I did go in and speak with the patient and we did attempt oral fluids, she started coughing and stated that she was unable to "hydrate with oral fluids". After reevaluation of the IV site is still infusing, slowly. We did try nebulized lidocaine to help with the coughing and gagging sensation. The nebulized lidocaine did work, she is able to take small sips of fluid without coughing at this time. The patient was sent home with 2 Phenergan tablets. The patient states she is feeling much better, she did end up with 1 full liter of normal saline infused. The patient has not questions or concerns at this time. Patient was instructed to take her medications from urgent care as prescribed. She does have Omnicef, prednisone, benzonatate and Zofran. Patient had no other questions or concerns at this time and was discharged home. Decision to Disposition Date: May 16, 2018 Decision to Disposition Time: 22:50 Depart Departure Latest Vital Signs Vital Signs Date Time Temp Pulse Resp B/P (MAP) Pulse Ox O2 Delivery O2 Flow Rate FiO2 05/16/18 22:36 92 16 05/16/18 19:40 100.2 116/90 91 Room Air Impression: Primary Impression: Cough Additional Impressions: Upper respiratory infection Nausea & vomiting Condition: Improved Disposition: HOME OR SELF-CARE Referrals: DAVIN MAYBERRY PERCHER (PCP) 2 Days New Scripts Promethazine Hcl (PROMETHAZINE HCL) 25 Mg Tablet 25 MG PO Q8H, #9 TAB 0 Refills Prov: JADON POOLE-KYLIE 05/16/18 Patient Instructions: Acute Nausea and Vomiting (ED), Upper Respiratory Infection (ED) Additional Instructions: Continue taking the medications that have been prescribed to you by Urgent care. Take the Zofran or Phenergan as needed for nausea and vomiting. Follow up in 2-4 days if no improvement. Drink plenty of water. Get plenty of rest. Return to the ED for any other concerns or worsening symptoms. Problem Qualifiers Additional Impressions: Upper respiratory infection URI type: unspecified URI Qualified Codes: J06.9 - Acute upper respiratory infection, unspecified Nausea & vomiting Vomiting type: unspecified Vomiting Intractability: non-intractable Qualified Codes: R11.2 - Nausea with vomiting, unspecified JADON POOLE- May 16, 2018 19:53
[2018-05-16] MEDS ORDERED: PROMETHAZINE 25 MG/ML 1 ML AMP IVP ONE (20:05)
[2018-05-16] MEDS ORDERED: NS(*) 0.9% 1000 ML BAG 1,000 ML IV ONE (20:05)
[2018-05-16 20:30] LABS: PLATELET COUNT, AUTOMATED 181 K/uL (150-450)
[2018-05-16] MEDS ORDERED: LIDOCAINE 4% SOLN 50 ML BTL TP ONE (22:00)
[2018-05-16] MEDS ORDERED: PROMETHAZINE HCL 25 MG TAB TH 2 TAB/BOTTLE PO ONE (22:00)
[2018-05-16] MEDS ORDERED: PROM-110 PO (22:47)
[2018-05-16 23:05] VITALS: BP 117/86
== END 2018-05-16 23:00 | disposition home or self-care (01) ==
LOC: ER 19:43
DX: J06.9 Acute upper respiratory infection, unspecified (principal); R11.2 Nausea with vomiting, unspecified; R05 Cough; J45.909 Unspecified asthma, uncomplicated; Z79.899 Other long term (current) drug therapy; A18.01 Tuberculosis of spine
CPT/HCPCS: 36415; 85025; 94640; 96361; 96374; 99283; A9270; J2550; J7030; 82040; 82247; 82310; 82374; 82435; 82565; 82947; 84075; 84132; 84155; 84295; 84450; 84460; 84520

== ENCOUNTER → 2018-05-18 | Outpatient (CLI) | payer MEDICARE ==
[~2018-05-18] MED LIST changes: +CEF300 PO; +DEXTROSE 5%(*) 100 ML BAG 100 ML IVPB PRN; +LIDOCAINE/SOD BICARB 8.4% SYR ID PRN; +NS(*) 0.9% 100 ML BAG 100 ML IVPB PRN
[2018-05-18] MEDS: NS(*) 0.9% 1000 ML BAG 1,000 ML IV SCH ×2 (14:30→15:30)
[2018-05-18 16:45] VITALS: BP 144/104
== END ==
LOC: SPU 14:06
PROVIDERS: ATTEND Nurse Practitioner Family
DX: E86.0 Dehydration (principal); I95.1 Orthostatic hypotension
CPT/HCPCS: 96360; J7030

== ENCOUNTER 2018-06-29 21:17 | Emergency (ER) | payer MEDICARE, OTHER ==
[~2018-06-29 21:17] MED LIST changes: -DEXTROSE 5%(*) 100 ML BAG 100 ML IVPB PRN; +DOXY-229 PO; -LIDOCAINE/SOD BICARB 8.4% SYR ID PRN; -NS(*) 0.9% 100 ML BAG 100 ML IVPB PRN
[2018-06-29 21:20] VITALS: BP 142/95
--- NOTE | 2018-06-29 21:27 | ER Report ---
History and Physical Time Seen By : 21:27 Hx. of Stated Complaint: BURNED LEFT KNUCKLES ON SOME PORTER GREASE. REQUESTING BURN CREAM SO SHE CAN SLEEP WITHOUT PAIN HPI/ROS CHIEF COMPLAINT: burn HISTORY OF PRESENT ILLNESS: This is a 37 year old female. burn on left hand, dorsal surface, mcp joints. Superficial burn, but hurting, burned on porter grease splatter. Requesting some type of burn cream to help the pain.Normal movement. Normal sensation. starting to blister Allergies: Coded Allergies: morphine (Verified Allergy, Intermediate, HIVES, 06/29/18) Penicillins (Verified Allergy, Mild, RASH, 06/29/18) latex (Verified Allergy, Mild, hives/rash, 06/29/18) NSAIDS (Non-Steroidal Anti-Inflamma (Verified Allergy, Unknown, ITCHING, 06/29/18) banana (Unverified Allergy, Unknown, 06/29/18) milk (Unverified Allergy, Unknown, 06/29/18) pineapple (Unverified Allergy, Unknown, 06/29/18) tomato (Unverified Allergy, Unknown, 06/29/18) aspirin (Verified Adverse Reaction, Unknown, 06/29/18) Uncoded Allergies: Nuts (Allergy, Unknown, 02/23/18) Dairy (Adverse Reaction, Unknown, 02/23/18) Home Meds Active Scripts Doxycycline Monohydrate (DOXYCYCLINE MONOHYDRATE) 100 Mg Tablet, 100 MG PO BID for 10 Days, #20 TAB 0 Refills Prov:BETZY LOPEZ MD 06/15/18 Promethazine Hcl (PROMETHAZINE HCL) 25 Mg Tablet, 25 MG PO Q8H, #9 TAB 0 Refills Prov:JADON POOLE INHALATION THERAPY TEACHER-BC 05/16/18 Reported Medications Cefdinir 300 Mg Cap (OMNICEF 300 MG CAP (OR EQUIV)) 300 Mg Cap, 300 MG PO BID, CAP 05/16/18 Benzonatate 100 Mg Cap (TESSALON PERLE 100 MG CAP) 100 Mg Capsule, 100 MG PO TID, #15 CAP 05/16/18 Montelukast Sodium (SINGULAIR) 10 Mg Tablet, 1 TAB PO QDAY, TAB 03/09/18 Epinephrine (EPINEPHRINE) 0.3 Mg/0.3 Ml Pen.injctr, 0.3 MG IM PRN 03/09/18 Levalbuterol Tartrate (XOPENEX HFA) 15 Gm Hfa.aer.ad, 2 PUFF IH Q4-6H PRN for SHORTNESS OF BREATH, #2 03/09/18 Mometasone/Formoterol (DULERA 100 MCG/5 MCG INHALER) 13 Gm Inh, 2 PUFF INH QDAY, #2 PUFF 03/09/18 Bethanechol Chloride (BETHANECHOL CHLORIDE) 25 Mg Tablet, 25 MG PO ACHS 03/09/18 Ranitidine Hcl (ZANTAC) 150 Mg Tablet, 300 MG PO QHS, TAB 03/09/18 Budesonide (BUDESONIDE) 0.5 Mg/2 Ml Ampul.neb, 0.5 MG IH BID, ML 03/09/18 Olopatadine Hcl (PATANASE) 30.5 Gm [place].pump, 2 SPRAYS NS BID, #2 SPRAYS 03/09/18 Cetirizine Hcl (CETIRIZINE HCL) 10 Mg Tablet, 10 MG PO QHS, TAB 03/09/18 Loratadine (LORATADINE) 10 Mg Tablet, 10 MG PO QDAY 03/09/18 Ondansetron Hcl (ONDANSETRON HCL) 4 Mg Tablet, 4 MG PO 2XW, TAB 03/09/18 Diphenhydramine Hcl (DIPHENHYDRAMINE HCL) 25 Mg Tablet, 25 MG PO PRN, TAB 03/09/18 Naproxen Sodium (ALEVE) 220 Mg Capsule, 220 MG PO 3XW, CAPSULE 03/09/18 Butalb/Acetaminophen/Caff 50-325-40 Mg (FIORICET 50-325-40) 1 Each Tablet, 1-2 TAB PO PRN, #30 TAB 03/09/18 Cyclobenzaprine Hcl (CYCLOBENZAPRINE HCL) 10 Mg Tablet, 10 MG PO PRN, #9 TAB 03/09/18 Clobetasol Propionate/Emoll (CLOBETASOL EMOLLIENT 0.05% CRM) 15 Gm Cream..g., 0 TP PRN 03/09/18 Turmeric (CURCUMIN) 1 Gm Powder, 1 GM MC PRN 03/09/18 Multivitamin (MULTIVITAMINS) 1 Each Capsule, 1 EACH PO, CAPSULE 03/09/18 Omeprazole (OMEPRAZOLE) 40 Mg Capsule.dr, 40 MG PO BID, CAP 03/09/18 Reviewed Nurses Notes: Yes Hx Smoking: No Smoking Status: Never Smoker Exposure to Second Hand Smoke?: No Hx Substance Use Disorder: No Hx Alcohol Use: No Constitutional Vital Sign - Last 24 Hours 06/29/18 21:20 Temp 99.3 Pulse 110 Resp 16 B/P (MAP) 142/95 Pulse Ox 94 O2 Delivery Room Air Physical Exam General: Alert, no acute distress. Skin: Some redness, slight raising of the skin over the 2nd mcp joint dorsal surface, but no distinct blisters. Tender to touch. Neuro: normal. Musculoskeletal: normal. Cardiovascular: normal capillary refill. Medical Decision Making ED Course/Re-evaluation ED Course EMLA cream now. Burn care discussed. Recommended over the counter antibiotic ointment Decision to Disposition Date: Jun 29, 2018 Decision to Disposition Time: 21:31 Depart Departure Latest Vital Signs Vital Signs Date Time Temp Pulse Resp B/P (MAP) Pulse Ox O2 Delivery O2 Flow Rate FiO2 06/29/18 21:20 99.3 110 16 142/95 94 Room Air Impression: Primary Impression: Superficial burn of back of left hand Condition: Improved Disposition: HOME OR SELF-CARE Referrals: DAVIN MAYBERRY (PCP) Patient Instructions: Superficial Burn (ED) Additional Instructions: Wash daily with soap and water. Apply a small amount of antibiotic ointment and bandage. You can use some of the lidocaine cream as well to help with pain. Tylenol to help with pain. Problem Qualifiers Primary Impression: Superficial burn of back of left hand Encounter type: initial encounter Qualified Codes: T23.162A - Burn of first degree of back of left hand, initial encounter SHANNON HUGHES MD Jun 29, 2018 21:27
[2018-06-29] MEDS ORDERED: LIDOCAINE/PRILOCAINE 5 GM TUBE TP ONE (21:30)
== END 2018-06-29 21:46 | disposition home or self-care (01) ==
LOC: ER 21:36
DX: T23.162A Burn of first degree of back of left hand, initial encounter (principal)
CPT/HCPCS: 99281; A9270

== ENCOUNTER → 2018-07-06 | Outpatient (CLI) | payer MEDICARE | LOC: LAB 14:24 | PROVIDERS: ATTEND Obstetrics & Gynecology | DX: Z11.3 Encounter for screening for infections with a predominantly sexual mode of transmission (principal); Z11.8 Encounter for screening for other infectious and parasitic diseases | CPT/HCPCS: 87491; 87591 ==

== ENCOUNTER → 2019-03-29 | Outpatient (CLI) | payer MEDICARE ==
[~2019-03-29] MED LIST changes: -HYDR-4309 PO; +HYDR-653 PO; -RANI-366 PO; +RANI-54 PO
--- NOTE | 2019-03-29 15:38 | RADIOLOGY IMAGING REPORT ---
[facility] PATIENT NAME: Ria Pham : 1980 MR: [id number] V: [id number] EXAM DATE: ORDERING PHYSICIAN: DAVIN MAYBERRY TECHNOLOGIST: Location: [facility] [place] Patient: Ria Pham : 1980 Visit/Account:[id number] Date of Sevice: 03/29/2019 Exam type: ESOPH VIDEO SWALLOWING History: Food getting stuck in throat Comparison: None. Findings: Modified barium swallow was performed by the speech pathologist. Fluoroscopic assistance was provide d The patient received thin barium and various food substances and a barium tablet. Please see the speech pathologist report for complete details the dose area product was 444.97 micro-Maza per meter squared IMPRESSION: 1. As above Report Dictated By: Maricruz Magdaleno MD at 03/29/2019 3:33 PM Report E-Signed By: Maricruz Magdaleno MD at 03/29/2019 3:34 PM WSN:[id number]
== END ==
LOC: RAD 00:30
PROVIDERS: ATTEND Nurse Practitioner Family
DX: Q79.6 Ehlers-Danlos syndromes (principal)
CPT/HCPCS: 74230

== ENCOUNTER → 2019-04-18 | Outpatient (CLI) | payer MEDICARE ==
--- NOTE | 2019-04-18 09:27 | RADIOLOGY IMAGING REPORT ---
FACILITY: [facility] [place] PATIENT NAME: Ria Pham : 1980 MR: [id number] V: [id number] EXAM DATE: ORDERING PHYSICIAN: REHANA REDD TECHNOLOGIST: Location: [facility] Patient: Ria Pham : 1980 Visit/Account:[id number] Date of Sevice: 04/18/2019 CERVICAL SPINE 2 OR 3 VIEW HISTORY: Numbness and tingling. COMPARISON: X-ray examination cervical spine from March 2018. FINDINGS: Four views of the cervical spine are submitted with flexion and extension. Prevertebral soft tissues are within normal limits. Stable, moderate spondylotic changes are seen at C6-C7 with degenerative narrowing and endplate spurring anteriorly. Alignment is anatomic in neutra l positioning. No evidence of hypermobility with flexion and extension. IMPRESSION: Stable, moderate spondylotic changes C6-C7. No evidence of acute osseous finding or hypermobility. Report Dictated By: Bacilio Marte MD at 04/18/2019 9:20 AM Report E-Signed By: Baiclio Marte MD at 04/18/2019 9:21 AM WSN:[id number]
== END ==
LOC: RAD 08:05
PROVIDERS: ATTEND Psychiatry & Neurology Neurology
DX: R20.0 Anesthesia of skin (principal)
CPT/HCPCS: 72040

== ENCOUNTER 2019-04-26 11:30 | Outpatient (RCR) | payer MEDICARE ==
--- NOTE | 2019-03-21 16:31 | SPEECH INITIAL EVALUATION ---
SPEECH THERAPY ASSESSMENT Physician: Dr. Светлана Nunez, NI Laird Clinician: Madhavi Mackay MS, CCC-WATER RESOURCE SPECIALIST Type of Assessment: Voice and Dysphagia Evaluation Patient: Ria Pham : 1980, 38yo Evaluation Date: 03-15-19, 03-18-18 BACKGROUND The patient is a 38yr old female with recent changes in vocal quality as well as increasing s/s of pharyngeal dysphagia. She has a relevant PMHx significant for Jenny-Danlos syndrome (types: Vascular & Hypermobile), POTS syndrome, asthma, sleep apnea (uses CPAP), and fatigue. She has a long history of dysphagia including pharyngeal and esophageal. . Pt reports intermittent partial vertebral dislocation at C1 with effortful/repeated swallows. She has multiple food/environmental/chemical allwergies (please see medical chart). An ST assessment was ordered upon recommendation of her physical therapist in [place] She received an MBS 05-18-17 with the following results: A minimal amount of moderately deep, nontransient laryngeal penetration was identified with single swallows of thin barium. Small sips of thin barium, single or consecutive, via cup help protect the airway. Small single sips of thin barium via straw help protect the airway. She received an FL. Esophgram on 05-15-17 with results as follows: Moderate to severe esophageal dysmotility. No evidence of gastroesophageal reflux during 2 minutes of intermittent fluoroscopy. Patient has been seen by an ENT but was unsure of the date and results at the time of this ST assessment. She will provide ST with the written summary when she finds it. Voice/Speech Assessment Vocal Hygiene: Hydration: hx of dehydration Tobacco: never Caffeine: very limited intake Alcohol: none Vocal Activities: uses voice professionally (mental health counsellor), uses voice recreationally (sings with churce 3-4/wk). Environmental Issues: food, chemical, environmental allergies. Limits exposure as much as possible Assessment of Respiration Mildly reduced inhalation prior to phonation assessment tasks intermittently. Less evident during conversational speech, though it was minimally witnessed. Assessment of Phonation (MPT) Maximum Phonation Time: Average of 6.16sec seconds for sustained vowel production (ah). With sustained production of voiced fricative (z) MPT increased to average of 9sec. Results indicate lower than normal glottal efficiency (norm MPT 15-25 seconds for adult female). S/Z Ratio: 1.1 95% of people who have a vocal fold pathology have an S/Z ratio of greater than 1.40 Pitch: Average mid pitch during vowel production: 294.67 hz Average high pitch during vowel production: 192.33 hz Average low pitch during vowel production: 161.66 hz Assessment of Resonance: unremarkable. WNL Assessment of Vocal Intensity Average volume during sustained vowel production at mid pitch: 79.6 db Average volume during conversational speech: not quantified but WNL functionally Overall Vocal Quality: Mild deficits noted during ST assessment. However, pt reports experiencing significant vocal quality decay with extended use (i.e., after singing, working, and in the evenings) as well as hx of episodes of aphonia. Aphonic episodes average approximately 2 weeks with the most recent episode in April/May of 2018. Pt reports the longest episode lasted 6months, this was in 2001. Dominant features that contribute to reduced vocal quality include hoarseness and strain. Some breathiness is present during specific vocal tasks but not during conversational speech. 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 Pt reported experiencing vocal fatigue and strain following ST assessment. She reports some level of strain is experienced consistently. OUTCOME MEASURES Voice Handicap Index (VHI): During the evaluation, the patient completed a VHI that is based on a 4pt scale (with 4 being most severe) to indicate vocal changes and the effects of these changes on ones life. The VHI is composed of three categories; physical, functional, and emotional. A score of 18 or more reflects a significant impact on quality of life. Results Physical= 26 An example of patient response is: 4; The clarity of my voice is unpredictable Functional=15 An example of patient response is: 3; My voice problem causes me to lose income. Emotional=6 An example of patient response is: 2; My voice problem upsets me. Total score=47 Indicates a moderate amount of vocal handicap Consensus Auditory-Perceptual Evaluation of Voice (CAPE-V): This tool for clinical auditory-perceptual assessment of voice was completed by the WATER RESOURCE SPECIALIST. Vocal attributes are accompanied by a 100mm line forming a visual analog scale. The clinician indicated the degree of perceived deviance from normal for each parameter on this scale. Overall Severity: 19/100 Mild Roughness: 21/100 Mild Breathiness: 11/100 Mild Strain: 24/100 Mild/Moderate Pitch: 0/100 WNL Loudness: 0/100 WNL Dysphagia Oral Mechanism Examination: Palpated laryngeal excursion with deglutition of solids bolus demonstrates decreased superior movement with greater anterior movement than expected. She received a lingual frenotomy when she was a baby. Lingual ROM and strength are WNL during this assessment. Vagus nerve inflation is reported. The patient reports gag reflex is intermittent. Soft palate ROM and symmetry WNL though pt reports intermittent nasal regurgitation. PO Oral Stage: Reports dysgeusia and a dx of benign migratory glossitis (geographic tongue). Pt reports receiving manual palate manipulation with her physical therapist. TMJ is present with pt reporting intermittent pain varying in severity which is present with mastication. Pt selects softer foods in response to increased TMJ pain. She also reports frequent dehydration for which she receives ongoing medical care. Pt adjusts chewing patterns according to mouth/jaw pain on an given occasions. Likewise, she avoids foods based on oral/pharyngeal/esophageal dysphagia and gastrointestinal symptoms present at the time. Food choices are largely governed by gastrointestinal response to foods. She reports frequent emesis in a.m. and following ingestion of some foods, though she could not be specific about which foods are most problematic as this is largely unpredictable. No oral stage dysphagia witnessed during PO trials. PO Pharyngeal Stage: Difficulty initiated swallow as well as globus sensation following deglutition. C1 displacement occurs intermittently especially following repeated effortful swallows (this did not occur during ST assessment). Pt reports mindfulness with deglutition decreases coughing/choking with thin liquids. Small bites/sips and carbonated liquids also help. PO trials with solids revealed the need for multiple swallows (3-5) to clear a small bolus from oropharynx. PO trials with liquids revealed need for multiple swallows (2) to clear the bolus. PO Esophageal Stage: Pt reports frequent regurgitation, gastro paresis, and GERD for which she currently takes medication. No s/s during PO trials. OUTCOME MEASURES Eating Assessment Tool (EAT-10): a patient self-scored rating scale of swallowing problems. Possible responses are based on a 1-4 numeric scale with 0= no problem, 4=severe problem. 1. My swallowing problem has caused me to lose weight. 0 2. My swallowing problem interferes with my ability to go out for meals. 2 3. Swallowing liquids takes extra effort. 3 4. Swallowing solids takes extra effort. 1 5. Swallowing pills takes extra effort. 2 6.Swallowing is painful 2 7. The pleasure of eating is affected by my swallowing. 2 8. When I swallow, food sticks in my throat. 3 9. I cough when I eat. 3 10. Swallowing is stressful. 1 Total Score: 19 A score of 3 or higher may indicate a swallowing problem. SUMMARY Mrs. Pham presents with a moderate voice disorder with an intermittent degree of severity, typically falling within the mild-moderate severity level, but occasionally deficits become severe with patient becoming largely aphonic for long periods of time and with increasing hoarseness and strain which decreases intelligibility and overall functional communication. Vocal fatigue is present following singing, work, and in the evenings. Overall decreased vocal quality characterized by hoarse voice, poor breath support, and vocal strain. Functional deficits include functional , physical, and emotional handicap. Intermittent s/s of oropharyngeal dysphagia are also present including frequent coughing with meals and globus sensation. Further evaluation of swallow is indicated and a modified barium swallow study is recommended. Based on evaluation, voice therapy is medically necessary. Mrs. Pham is a good candidate for vocal therapy based on a program for healthy vocal use/function. A home program will be established and trained. ST has spoken with the patients physical therapist. Patient care will be coordinated with PT. Recommendations 1. ST 2wk12 2. Further Evaluation: Modified Barium Swallow Study. Prognosis: Good POC Short Term Goals 1. Pt will self-report a total score between 0-30 on the Voice Handicap Index indicating a vocal handicap in the normal to mild severity range. 2. Pt will demonstrate independence with trained voice and dysphagia home program 4. Pt will self-report a score of 10 or below on the EAT-10 indicating a handicap in the mild severity range. [place] Goal Pt will demonstrate functional vocal production and swallow Thank you for this referral. Please call [phone] Madhavi Mackay M.S., [facility]-WATER RESOURCE SPECIALIST Physician Signature Date MTDD
--- NOTE | 2019-04-19 11:08 | SLP MODIFIED BARIUM SWALLOW ---
MODIFIED BARIUM SWALLOW STUDY REPORT Ordering Physician: Courtney Ji MATERIAL STOCKKEEPER YARD, Dr. Светлана Nunez, Clinician: Madhavi Mackay MS, CCC-OPERATORS TEACHER Type of Assessment: MBSS Patient: Ria Pham : 1980, 38yrs Evaluation Date: 03-29-19 BACKGROUND The patient is a 38yr old female with recent changes in vocal quality as well as increasing s/s of pharyngeal dysphagia. She has a relevant PMHx significant for Jenny-Danlos syndrome (types: Vascular & Hypermobile), POTS syndrome, asthma, sleep apnea (uses CPAP), and fatigue. She has a long history of dysphagia including pharyngeal and esophageal. Pt reports intermittent partial vertebral dislocation at C1 with effortful/repeated swallows. She has multiple food/environmental/chemical allergies (please see medical chart). An MBSS was indicated following a bedside clinical swallow evaluation at [facility] on 03-15-19, 03-18-19. MODIFIED BARIUM SWALLOW ASSESSMENT Diagnosis: dysphagia Pain with Swallow: Denies but does report intermittent sore throat LOC / Participation: Alert and cooperative. Follows instructions: Yes Orientation: A&O x4 Sialorrhea: No Xerostomia: No Oral Hygiene: WFL Supplemental Oxygen Use: No COPD Dx: No Overall Impression: Mild oropharyngeal dysphagia with solids. No laryngeal penetration or aspiration witnessed. Increased risk of aspiration d/t medical dx (Jenny-Danlos syndrome) and frequent emesis. Nature of dx results in intermittent and inconsistent severity of symptoms. Pt reports swallow function during this evaluation was atypical with reduced severity of symptoms. In conjunction with radiology, the pt was seated in the lateral view. The following consistencies were trialed: thin liquids via cup sip, pureed solids, mechanically altered solids, advanced solids, mixed consistencies (thin liquids, mechanical soft foods), and a 1cm barium pill paired with thin liquids. Oral phase: BOT demonstrates decreased function with stasis following solids deglutition and some piecemeal deglutition with solids. Stasis ultimately cleared with multiple swallows. Pharyngeal phase: WNL. No abnormal structure or function witnessed. Esophageal phase: WNL. No abnormal structure of function witnessed. Penetration/Aspiration Scale (PAS)*: All trialed consistencies: Score of 1; Material does not enter airway *(Polina et al. 1996) RECOMMENDATIONS Speech Therapy Need: Yes: to address increased risk of aspiration and dysphagia symptoms decreasing function swallow. Thank you for this referral. Please call [phone] to contact speech therapy at [facility] Madhavi Mackay M.S., [facility]-OPERATORS TEACHER Speech Therapist JENNA
== END 2019-04-26 18:00 | disposition home or self-care (01) ==
LOC: ST 11:30
PROVIDERS: ATTEND Nurse Practitioner Family
DX: Q79.6 Ehlers-Danlos syndromes (principal)